=== PATIENT | male | born 1960 | race Hispanic/Latino ===

== ENCOUNTER 2020-04-12 00:55 | Inpatient (IN) | payer OTHER ==
[2020-04-12] VITALS (15 sets, daily range): BP systolic 48–168; BP diastolic 21–100
[~2020-04-12] VITALS: Ht 172.7 cm; Wt 82.4 kg
[2020-04-12] MEDS ORDERED: METO25 PO (04:01)
[2020-04-12] MEDS ORDERED: AEC81 PO (04:01)
[2020-04-12] MEDS ORDERED: LEVO100 PO (04:01)
[2020-04-12] MEDS ORDERED: FURO40TA7 PO (04:01)
[2020-04-12] MEDS ORDERED: DiphenhydrAMINE HCL 50 MG/ML VIAL IV PRN (04:45)
[2020-04-12] MEDS ORDERED: MAG/ALUM/SIMETH 30 ML UDCUP PO PRN (04:45)
[2020-04-12] MEDS ORDERED: ONDANSETRON 4MG INJ IV PRN (04:45)
[2020-04-12] MEDS ORDERED: ACETAMINOPHEN 325 MG TAB PO PRN ×2 (04:45)
[2020-04-12] MEDS ORDERED: GUAIFENESIN-DM 200/20 MG 10 ML PO PRN (04:45)
[2020-04-12] MEDS ORDERED: LACTULOSE 20 GM/30 ML UDCUP PO PRN (04:45)
[2020-04-12] MEDS ORDERED: DIPHENHYDRAMINE HCL 25 MG CAPSULE PO PRN (04:45)
[2020-04-12] MEDS ORDERED: NITROGLYCERIN 0.4 MG SL TAB SL PRN (04:45)
[2020-04-12] MEDS ORDERED: METOPROLOL TARTRATE 25 MG TAB PO SCH (09:00)
[2020-04-12] MEDS ORDERED: FUROSEMIDE 40MG VIAL IVP SCH (09:00)
[2020-04-12] MEDS ORDERED: TICAGRELOR 90 MG TABLET PO SCH ×2 (09:41→11:53)
[2020-04-12] MEDS: ASPIRIN 325 MG TABLET PO SCH (09:46)
[2020-04-12] MEDS ORDERED: ENOXAPARIN SODIUM 1 MG/KG SQ SCH (10:00)
[2020-04-12 11:13] LABS: CREATININE 2.9 mg/dL (0.5-1.5); POTASSIUM 4.6 mmol/L (3.5-5.1)
[2020-04-12] MEDS ORDERED: LORAZEPAM 2 MG/ML 1 ML VIAL ONE (11:35)
[2020-04-12] MEDS ORDERED: MORPHINE 4 MG SYG ONE (11:40)
[2020-04-12] MEDS ORDERED: NITROGLYCERIN 1GM OINT 1 INCH/1GM TD ONE (11:41)
[2020-04-12] MEDS ORDERED: ENOXAPARIN SODIUM 80 MG/0.8 ML SQ SCH (11:54)
[2020-04-12 12:19] LABS: LYMPHOCYTES % (MANUAL) 8 % (22-44); MAN.DIFF COMMENT-IMPRESSION MANUAL DIFFERENTIAL; MONOCYTES % (MANUAL) 11 % (2-9); SEGMENTED NEUTROPHILS % 81 % (40-70)
[2020-04-12 12:20] LABS: PLATELET MORPHOLOGY COMMENT ADEQUATE
[2020-04-12 12:22] LABS: HEMATOCRIT 51.5 % (42-54); MEAN CORPUSCULAR HEMOGLOBIN 30.1 pg (27.0-33.0); MEAN CORPUSCULAR HGB CONC 32.2 g/dL (32.0-36.0); MEAN CORPUSCULAR VOLUME 93.5 fL (79-99); PLATELET COUNT (AUTO) 285 K/uL (130-400); RED BLOOD CELL COUNT(AUTO) 5.51 MIL/uL (4.50-6.20); RED CELL DISTRIBUTION WIDTH 16.1 % (11.0-15.5); WHITE BLOOD COUNT (AUTO) 9.1 K/uL (4.8-10.8)
[2020-04-12] MEDS ORDERED: MIDAZOLAM HCL 1 MG/ML 2ML VIAL ONE (13:21)
[2020-04-12] MEDS ORDERED: HEPARIN 10,000 UNIT/10ML (1,000 UNIT/ML) VIAL ONE (13:21)
[2020-04-12] MEDS ORDERED: LIDOCAINE HCL 400MG/20ML VIAL ONE (13:21)
[2020-04-12] MEDS ORDERED: FENTANYL CITRATE PF 50 MCG/1 ML 2ML VIAL ONE (13:21)
[2020-04-12] MEDS ORDERED: IOHEXOL 350 MG/ML 100ML INFUS..BTL IV ONE ×2 (13:21→15:04)
[2020-04-12] MEDS ORDERED: NITROGLYCERIN 2 MG VIAL IV ONE (13:23)
[2020-04-12] MEDS ORDERED: HEPARIN 25,000 UNITS/250ML D5W 250 ML IV ONE ×2 (13:56→17:14)
[2020-04-12] MEDS ORDERED: PHARMACY COMMUNICATION MISC SCH (16:45)
[2020-04-12] MEDS ORDERED: FUROSEMIDE 100 MG/NS 100ML IV SCH ×2 (17:00)
[2020-04-12] MEDS ORDERED: NOREPINEPHRIN 4MG/NS 250ML 250 ML IV SCH (17:45)
[2020-04-12] MEDS ORDERED: NITROGLYCERIN 50MG/D5W 250ML 250 BOT IV SCH (17:45)
[2020-04-12 17:58] LABS: HEMATOCRIT 44.9 % (42-54)
[2020-04-12 18:14] LABS: INR 1.82 (0.85-1.15); PROTHROMBIN TIME 18.8 SEC (9.6-11.6)
[2020-04-12] MEDS ORDERED: WATER SQ SCH (18:15)
[2020-04-12] MEDS ORDERED: HEPARIN SQ SCH (18:15)
[2020-04-12] MEDS ORDERED: DEXTROSE 5% SQ SCH (18:15)
[2020-04-12] MEDS ORDERED: DEXTROSE IV SCH (18:30)
[2020-04-12] MEDS ORDERED: HEPARIN 25000 UNIT/250 ML IV SCH (18:30)
[2020-04-12 18:31] LABS: PARTIAL THROMBOPLASTIN TIME > 139.0 SEC (26.3-35.5)
[2020-04-12] MEDS ORDERED: HEPARIN 25,000 UNITS/250ML D5W 250 ML IV SCH (18:45)
[2020-04-12 19:10] LABS: CREATININE 2.7 mg/dL (0.5-1.5); POTASSIUM 4.8 mmol/L (3.5-5.1)
[2020-04-12 19:25] LABS: TROPONIN I 29.98 ng/mL (0.00-0.06)
[2020-04-12 20:18] LABS: HEMATOCRIT 47.2 % (42-54)
[2020-04-12] MEDS: 0.9%NACL 1000ML 1,000 ML IV SCH ×2 (20:43→20:52)
[2020-04-12] MEDS ORDERED: CARVEDILOL 3.125 MG TABLET PO SCH (21:00)
[2020-04-12] MEDS: TICAGRELOR 90 MG TABLET PO SCH (21:01)
[2020-04-12] MEDS: ATORVASTATIN 20 MG TABLET PO SCH (21:01)
[2020-04-12 23:25] LABS: HEMATOCRIT 47.8 % (42-54)
[2020-04-13] VITALS (23 sets, daily range): BP systolic 81–146; BP diastolic 42–97
[2020-04-13] MEDS ORDERED: MIDAZOLAM HCL 1 MG/ML 2ML VIAL ONE (00:54)
[2020-04-13] MEDS ORDERED: EPINEPHRINE PF 1MG AMP ONE (01:20)
[2020-04-13] MEDS ORDERED: 0.9% NACL 250ML 250 ML IV ONE (01:21)
[2020-04-13] MEDS ORDERED: FENTANYL CITRATE PF 0.05 MG/ML 1,000 MCG in 0.9%NACL 100ML 100 ML IVPB SCH (01:30)
[2020-04-13 01:31] LABS: HEMATOCRIT 49.9 % (42-54)
[2020-04-13] MEDS ORDERED: FENTANYL 2500MCG+NS 250ML 250 ML IV ONE (01:42)
[2020-04-13 02:08] LABS: ABG BASE EXCESS -10.7 mmol/L (-2.0-3.0); ABG HCO3 12.6 mmol/L (21.0-28.0); ABG OXYGEN SATURATION 99.6 % (95.0-99.0); ABG PCO2 23 mmHg (35-48)
[2020-04-13 02:10] LABS: ABG BASE EXCESS -10.5 mmol/L (-2.0-3.0); ABG HCO3 12.8 mmol/L (21.0-28.0); ABG OXYGEN SATURATION 99.7 % (95.0-99.0); ABG PCO2 23 mmHg (35-48)
[2020-04-13] MEDS ORDERED: SODIUM BICARB 50MEQ 50ML VIAL IV STA (02:18)
[2020-04-13] MEDS ORDERED: SODIUM BICARB 8.4% 50ML SYRINGE IVP SCH (02:30)
[2020-04-13] MEDS ORDERED: SODIUM BICARB 50MEQ 50ML VIAL 150 ML ONE (02:45)
[2020-04-13 03:51] LABS: HEMATOCRIT 38.6 % (42-54); MEAN CORPUSCULAR HEMOGLOBIN 31.4 pg (27.0-33.0); MEAN CORPUSCULAR HGB CONC 34.7 g/dL (32.0-36.0); MEAN CORPUSCULAR VOLUME 90.4 fL (79-99); RED BLOOD CELL COUNT(AUTO) 4.27 MIL/uL (4.50-6.20); RED CELL DISTRIBUTION WIDTH 15.9 % (11.0-15.5); WHITE BLOOD COUNT (AUTO) 14.1 K/uL (4.8-10.8)
[2020-04-13 04:21] LABS: CREATININE 2.9 mg/dL (0.5-1.5); PHOSPHORUS 6.1 mg/dL (2.5-4.9); POTASSIUM 4.5 mmol/L (3.5-5.1); URIC ACID 15.1 mg/dL (2.6-7.2)
[2020-04-13] MEDS ORDERED: SODIUM BICARB 50MEQ 50ML VIAL IV SCH (07:30)
[2020-04-13] MEDS: SODIUM BICARBONATE 650 MG TAB PO SCH ×3 (08:30→17:14)
[2020-04-13] MEDS: ASPIRIN 325 MG TABLET PO SCH (08:31)
[2020-04-13] MEDS: TICAGRELOR 90 MG TABLET PO SCH ×2 (08:31→22:01)
[2020-04-13] MEDS ORDERED: MIDAZOLAM 100MG-0.9% NS 100ML 100ML BAG IV SCH (11:30)
[2020-04-13 12:23] LABS: BASOPHILS % (AUTO) 0.6 % (0.0-5.0); EOSINOPHILS % (AUTO) 0.2 % (0.0-8.0); HEMATOCRIT 35.4 % (42-54); LYMPHOCYTES % (AUTO) 4.3 % (21.0-51.0); MEAN CORPUSCULAR HEMOGLOBIN 31.6 pg (27.0-33.0); MEAN CORPUSCULAR HGB CONC 35.3 g/dL (32.0-36.0); MEAN CORPUSCULAR VOLUME 89.4 fL (79-99); MONOCYTES % (AUTO) 10.2 % (3.0-13.0); NEUTROPHILS % (AUTO) 84.1 % (40.0-77.0); PLATELET COUNT (AUTO) 187 K/uL (130-400); RED BLOOD CELL COUNT(AUTO) 3.96 MIL/uL (4.50-6.20); RED CELL DISTRIBUTION WIDTH 15.8 % (11.0-15.5)
[2020-04-13 13:10] LABS: ALBUMIN 2.6 g/dL (3.5-5.0); BILIRUBIN,TOTAL 9.5 mg/dL (0.2-1.0); CREATININE 3.3 mg/dL (0.5-1.5); MAGNESIUM 1.8 mg/dL (1.80-2.40); PHOSPHORUS 4.1 mg/dL (2.5-4.9); POTASSIUM 3.9 mmol/L (3.5-5.1); TOTAL PROTEIN, SERUM 6.1 g/dL (6.0-8.3)
[2020-04-13] MEDS: FENTANYL 2500MCG+NS 250ML 250 ML IV SCH (17:41)
[2020-04-13] MEDS ORDERED: PANTOPRAZOLE 40MG INJ 80 MG in 0.9%NACL 100ML 100 ML IVP SCH (18:00)
[2020-04-13 18:25] LABS: HEMATOCRIT 32.2 % (42-54)
[2020-04-13] MEDS ORDERED: WATER IV SCH (20:15)
[2020-04-13] MEDS ORDERED: HEPARIN IV SCH (20:15)
[2020-04-13] MEDS ORDERED: DEXTROSE 5% IV SCH (20:15)
[2020-04-13] MEDS: ATORVASTATIN 20 MG TABLET PO SCH (22:01)
[2020-04-13 22:05] LABS: HEMATOCRIT 31.9 % (42-54)
[2020-04-14] VITALS (13 sets, daily range): BP systolic 83–169; BP diastolic 48–74
[2020-04-14 04:04] LABS: HEMATOCRIT 32.3 % (42-54)
[2020-04-14 04:56] LABS: INR 1.58 (0.85-1.15); PROTHROMBIN TIME 16.5 SEC (9.6-11.6)
[2020-04-14 05:23] LABS: BASOPHILS % (AUTO) 0.4 % (0.0-5.0); EOSINOPHILS % (AUTO) 0.4 % (0.0-8.0); LYMPHOCYTES % (AUTO) 2.1 % (21.0-51.0); MEAN CORPUSCULAR HEMOGLOBIN 31.9 pg (27.0-33.0); MEAN CORPUSCULAR HGB CONC 35.8 g/dL (32.0-36.0); MONOCYTES % (AUTO) 5.9 % (3.0-13.0); NEUTROPHILS % (AUTO) 90.2 % (40.0-77.0); NUCLEATED RED BLOOD CELLS 0.3 % (0.0-0.19); PLATELET COUNT (AUTO) 193 K/uL (130-400); RED BLOOD CELL COUNT(AUTO) 3.64 MIL/uL (4.50-6.20); WHITE BLOOD COUNT (AUTO) 15.6 K/uL (4.8-10.8)
[2020-04-14] MEDS: FENTANYL 2500MCG+NS 250ML 250 ML IV SCH (06:53)
[2020-04-14 07:23] LABS: ALBUMIN 2.5 g/dL (3.5-5.0); BILIRUBIN,TOTAL 12.9 mg/dL (0.2-1.0); CREATININE 4.5 mg/dL (0.5-1.5); MAGNESIUM 2.1 mg/dL (1.80-2.40); POTASSIUM 4.5 mmol/L (3.5-5.1); TOTAL PROTEIN, SERUM 6.1 g/dL (6.0-8.3)
[2020-04-14] MEDS: SODIUM BICARBONATE 650 MG TAB PO SCH ×2 (08:00→12:00)
[2020-04-14 08:23] LABS: BASOPHILS % (AUTO) 0.3 % (0.0-5.0); EOSINOPHILS % (AUTO) 0.3 % (0.0-8.0); HEMATOCRIT 33.6 % (42-54); LYMPHOCYTES % (AUTO) 2.7 % (21.0-51.0); MEAN CORPUSCULAR HEMOGLOBIN 31.4 pg (27.0-33.0); MEAN CORPUSCULAR HGB CONC 34.8 g/dL (32.0-36.0); MEAN CORPUSCULAR VOLUME 90.1 fL (79-99); MONOCYTES % (AUTO) 6.4 % (3.0-13.0); NEUTROPHILS % (AUTO) 89.4 % (40.0-77.0); NUCLEATED RED BLOOD CELLS 0.4 % (0.0-0.19); PLATELET COUNT (AUTO) 190 K/uL (130-400); RED BLOOD CELL COUNT(AUTO) 3.73 MIL/uL (4.50-6.20); RED CELL DISTRIBUTION WIDTH 16.5 % (11.0-15.5)
[2020-04-14 08:53] LABS: ABG BASE EXCESS -6.7 mmol/L (-2.0-3.0); ABG OXYGEN SATURATION 99.5 % (95.0-99.0); ABG PCO2 25 mmHg (35-48)
[2020-04-14 08:55] LABS: ALBUMIN 2.5 g/dL (3.5-5.0); BILIRUBIN,TOTAL 12.9 mg/dL (0.2-1.0); CREATININE 4.8 mg/dL (0.5-1.5); MAGNESIUM 2.3 mg/dL (1.80-2.40); POTASSIUM 3.9 mmol/L (3.5-5.1); TOTAL PROTEIN, SERUM 6.3 g/dL (6.0-8.3)
[2020-04-14] MEDS ORDERED: PHENYLEPHRINE HCL 50 MG in 0.9% NACL 250ML 250 ML IV PRN (09:00)
[2020-04-14] MEDS: TICAGRELOR 90 MG TABLET PO SCH (09:00)
[2020-04-14] MEDS: ASPIRIN 325 MG TABLET PO SCH (09:00)
[2020-04-14] MEDS ORDERED: NACL 0.9% IV SCH (09:30)
[2020-04-14] MEDS ORDERED: EPINEPHRINE IV SCH (09:30)
[2020-04-14 10:03] LABS: HEMATOCRIT 34.9 % (42-54)
== END 2020-04-14 14:48 | disposition expired | DRG 215 ==
LOC: 4CH 03:15 → 2DH 17:19
PROVIDERS: ADMIT Family Medicine; ATTEND Family Medicine
PROC: 02HA3RZ Insertion of Short-term External Heart Assist System into Heart, Percutaneous Approach (ICD-10-PCS; principal; 2020-04-12)
PROC: 5A0221D Assistance with Cardiac Output using Impeller Pump, Continuous (ICD-10-PCS; 2020-04-12)
PROC: 4A023N7 Measurement of Cardiac Sampling and Pressure, Left Heart, Percutaneous Approach (ICD-10-PCS; 2020-04-12)
PROC: B2111ZZ Fluoroscopy of Multiple Coronary Arteries using Low Osmolar Contrast (ICD-10-PCS; 2020-04-12)
PROC: B2181ZZ Fluoroscopy of Left Internal Mammary Bypass Graft using Low Osmolar Contrast (ICD-10-PCS; 2020-04-12)
PROC: B2131ZZ Fluoroscopy of Multiple Coronary Artery Bypass Grafts using Low Osmolar Contrast (ICD-10-PCS; 2020-04-12)
PROC: 0BH17EZ Insertion of Endotracheal Airway into Trachea, Via Natural or Artificial Opening (ICD-10-PCS; 2020-04-13)
PROC: 5A1945Z Respiratory Ventilation, 24-96 Consecutive Hours (ICD-10-PCS; 2020-04-13)
PROC: 5A12012 Performance of Cardiac Output, Single, Manual (ICD-10-PCS; 2020-04-13)
DX: T82.858A Stenosis of other vascular prosthetic devices, implants and grafts, initial encounter (principal); I21.4 Non-ST elevation (NSTEMI) myocardial infarction; I50.23 Acute on chronic systolic (congestive) heart failure; J96.00 Acute respiratory failure, unspecified whether with hypoxia or hypercapnia; I13.0 Hypertensive heart and chronic kidney disease with heart failure and stage 1 through stage 4 chronic kidney disease, or unspecified chronic kidney disease; N17.9 Acute kidney failure, unspecified; I47.2 Ventricular tachycardia; I46.2 Cardiac arrest due to underlying cardiac condition; R57.0 Cardiogenic shock; R31.9 Hematuria, unspecified; Z86.16 Personal history of COVID-19; N18.30 Chronic kidney disease, stage 3 unspecified; M10.9 Gout, unspecified; I25.5 Ischemic cardiomyopathy; I25.10 Atherosclerotic heart disease of native coronary artery without angina pectoris; F41.1 Generalized anxiety disorder; F14.10 Cocaine abuse, uncomplicated; E78.5 Hyperlipidemia, unspecified; E11.22 Type 2 diabetes mellitus with diabetic chronic kidney disease; E03.9 Hypothyroidism, unspecified; D64.9 Anemia, unspecified; Z95.1 Presence of aortocoronary bypass graft; Z87.01 Personal history of pneumonia (recurrent); Z79.82 Long term (current) use of aspirin; Z79.899 Other long term (current) drug therapy; Z79.01 Long term (current) use of anticoagulants; Z82.3 Family history of stroke; Z83.3 Family history of diabetes mellitus; I25.2 Old myocardial infarction; Z82.49 Family history of ischemic heart disease and other diseases of the circulatory system; Y92.89 Other specified places as the place of occurrence of the external cause
CPT/HCPCS: 31500; 33990; 36415; 36600; 71045; 76770; 80048; 80053; 82435; 82550; 82803; 82947; 82948; 83605; 83735; 83874; 84100; 84132; 84295; 84484; 84550; 85014; 85018; 85025; 85027; 85347; 85610; 85730; 92920; 92950; 93005; 93308; 93459; 94002; 94003; 99156; 99157; C1769; C1887; C1894; C9113; J0171; J1644; J1940; J2060; J2250; J2270; J2370; J3010; J3490; J7050; J7060; Q9967